=== PATIENT | female | born 1945 | race Two or more races ===

== ENCOUNTER 2022-06-22 20:21 | Emergency (ER) | payer OTHER ==
[~2022-06-22] VITALS: Ht 154.9 cm; Wt 70.3 kg
--- NOTE | 2022-06-22 20:37 | NUR ---
[id number] FROM [facility] C/O VB FOR THE PAST FEW DAYS. PT A/OX3. TOLERATING R/A WELL WITH NO RESP DISTRESS. SAFETY MEASURES IN PLACE.
--- NOTE | 2022-06-22 21:01 | NUR ---
INSERTED IN&OUT F/C 16FR ; AWAITING FOR URINE OUTPUT.
--- NOTE | 2022-06-22 21:28 | NUR ---
URINE COLLECTED AND SENT TO LAB
[2022-06-22 21:31] LABS: BASOPHILS % (AUTO) 0.7 % (0.0-2.0); EOSINOPHILS % (AUTO) 0.8 % (0.0-6.0); HEMATOCRIT 29 % (33-45); HEMOGLOBIN 9.5 g/dL (11.5-14.8); LYMPHOCYTES # (AUTO) 2.2 K/uL (0.8-4.8); LYMPHOCYTES % (AUTO) 40.1 % (20.0-44.0); MEAN CORPUSCULAR HGB CONC 33 g/dl (31.0-36.0); MEAN CORPUSCULAR VOLUME 90 fL (82-100); MONOCYTES # (AUTO) 0.5 K/uL (0.1-1.30); MONOCYTES % (AUTO) 8.7 % (2.0-12.0); NEUTROPHILS # (AUTO) 2.8 K/uL (1.8-8.9); NEUTROPHILS % (AUTO) 49.7 % (43.0-81.0); PLATELET COUNT (AUTO) 141 K/uL (150-450); RED BLOOD CELL COUNT(AUTO) 3.26 MIL/uL (4.0-5.2); WHITE BLOOD COUNT (AUTO) 5.5 K/uL (4.3-11.0)
[2022-06-22 21:41] LABS: COLOR,URINE RED (YELLOW)
[2022-06-22 21:51] LABS: ALANINE AMINOTRANSFERASE 8 U/L (12-78); ALBUMIN 2.4 g/dL (3.4-5.0); ALKALINE PHOSPHATASE 46 U/L (46-116); ASPARTATE AMINOTRANSFERASE 14 U/L (15-37); BILIRUBIN,DIRECT 0.1 mg/dL (0.0-0.2); BILIRUBIN,TOTAL 0.4 mg/dL (0.2-1.0); CARBON DIOXIDE 30 mmol/L (21-32); CHLORIDE 101 mmol/L (98-107); CREATININE 4.1 mg/dL (0.6-1.3); GLUCOSE 121 mg/dL (74-106); POTASSIUM 4.3 mmol/L (3.5-5.1); SODIUM SERUM 138 mmol/L (136-145); TOTAL PROTEIN, SERUM 6.3 g/dL (6.4-8.2); UREA NITROGEN, BLOOD 39 mg/dL (7-18)
[2022-06-22 22:14] LABS: RBC,URINE TOO NUMEROUS TO COUN /HPF (0-2)
[2022-06-22 22:16] LABS: BACTERIA,URINE 0 /HPF (None Seen); SQUAMOUS EPITHELIAL CELL,UR 0-2 /HPF (None Seen)
--- NOTE | 2022-06-22 22:22 | NUR ---
spoke to shay georges of the [facility] at [phone] and CG [phone]. report given going back to [facility]. [facility] at bed side
[2022-06-22 22:30] VITALS: BP 114/56
--- NOTE | 2022-06-22 22:32 | NUR ---
picked up by [facility]
== END 2022-06-22 23:18 | disposition home or self-care (01) ==
LOC: ER 20:23
DX: N93.9 Abnormal uterine and vaginal bleeding, unspecified (principal); E11.22 Type 2 diabetes mellitus with diabetic chronic kidney disease; I12.0 Hypertensive chronic kidney disease with stage 5 chronic kidney disease or end stage renal disease; N18.6 End stage renal disease
CPT/HCPCS: 36415; 80048-TC; 80076-TC; 81001; 85025-TC; 85730-TC